=== PATIENT | male | born 1985 | race Caucasian/White ===

== ENCOUNTER 2025-04-27 17:03 | Emergency (ER) | payer OTHER ==
[~2025-04-27] VITALS: Ht 180.3 cm; Wt 83.9 kg
[2025-04-27] MEDS ORDERED: METOCLOPRAMIDE HCL 10 MG/2 ML VIAL ONE ×2 (17:39→20:00)
[2025-04-27] MEDS: METOCLOPRAMIDE HCL 10 MG/2 ML VIAL IV ONE (17:51)
[2025-04-27] MEDS: IV NS 0.9% 1,000 ML BAG IV ONE (17:51)
[2025-04-27 17:53] LABS: PLATELET COUNT (AUTO) 215 K/uL (150-450); RED BLOOD CELL COUNT(AUTO) 4.93 MIL/uL (4.5-6.0); RED CELL DISTRIBUTION WIDTH 14.3 % (11.5-15.0); WHITE BLOOD COUNT (AUTO) 9.2 K/uL (4.3-11.0)
[2025-04-27 18:01] LABS: CALCIUM, SERUM 9.7 mg/dL (8.5-10.1); CREATININE 1.1 mg/dL (0.6-1.3); SODIUM SERUM 138.0 mmol/L (136-145); UREA NITROGEN, BLOOD 20.0 mg/dL (7-18)
[2025-04-27 18:06] LABS: ASPARTATE AMINOTRANSFERASE 106.0 U/L (15-37); TOTAL PROTEIN, SERUM 6.9 g/dL (6.4-8.2)
[2025-04-27] MEDS ORDERED: KETOROLAC TROMETHAMINE INJ 30 MG/ML VIAL ONE (19:05)
[2025-04-27 19:06] LABS: APPEARANCE,URINE SLIGHTLY CLOUDY (CLEAR); BLOOD, URINE NEGATIVE Ery/uL (NEGATIVE); LEUKOCYTE ESTERASE ,URINE NEGATIVE (NEGATIVE); NITRITE, URINE NEGATIVE (NEGATIVE); UGLUCOSE NEGATIVE (NEGATIVE)
[2025-04-27] MEDS: KETOROLAC TROMETHAMINE INJ 30 MG/ML VIAL IV ONE (19:08)
[2025-04-27 19:23] LABS: ADD URINE CULTURE NO; SQUAMOUS EPITHELIAL CELL,UR None Seen /HPF (None Seen)
[2025-04-27 19:24] LABS: URINE AMORPHOUS URATE Few /HPF (None Seen)
[2025-04-27] MEDS ORDERED: NAPR-1009 PO (19:51)
[2025-04-27] MEDS ORDERED: METO-295 PO (19:51)
[2025-04-27] MEDS: METOCLOPRAMIDE HCL 10 MG/2 ML VIAL IV STA (20:00)
[2025-04-27 20:33] VITALS: BP 144/66; TEMP 98.8; O2SAT 98
== END 2025-04-27 20:33 | disposition home or self-care (01) ==
LOC: ER 17:13
DX: R11.2 Nausea with vomiting, unspecified (principal)
CPT/HCPCS: 99284; 96374; 71045; 96361; 96375; 96376; 85025; 80048; 87086; 83690; 80076; 81001; 36415; J1885; J2765 ×2